=== PATIENT | male | born 1960 | race Caucasian/White ===

== ENCOUNTER 2020-07-16 19:40 | Emergency (ER) | payer OTHER ==
[2020-07-16 19:50] VITALS: BP 140/87; PULSE 93; TEMP 98.5; BMI 28.8
== END 2020-07-16 20:48 | disposition home or self-care (01) ==
LOC: JER 19:40
DX: J40 Bronchitis, not specified as acute or chronic (principal); Z11.52 Encounter for screening for COVID-19
CPT/HCPCS: 71046-TC-FY; 99283-25; C9803; U0003; U0005